=== PATIENT | female | born 1955 | race Caucasian/White ===

== ENCOUNTER 2017-12-18 20:22 | Emergency (ER) | payer BC | END 2017-12-18 23:40 | disposition home or self-care (01) | LOC: FTE 20:22 | DX: S42.291A Other displaced fracture of upper end of right humerus, initial encounter for closed fracture (principal); W01.0XXA Fall on same level from slipping, tripping and stumbling without subsequent striking against object, initial encounter; Y92.9 Unspecified place or not applicable | CPT/HCPCS: 73030; 73030-RT; 99283-25 ==